=== PATIENT | female | born 1960 | race Caucasian/White ===

== ENCOUNTER 2021-07-14 12:49 | Emergency (ER) | payer BC, OTHER ==
[~2021-07-14] VITALS: Ht 172.7 cm; Wt 61.2 kg
[2021-07-14 13:10] VITALS: BP 118/79
[2021-07-14] MEDS ORDERED: DexAMETHasone SOD PHOS 4 MG/1ML SDV INJ IM ONE (15:45)
== END 2021-07-14 16:48 | disposition home or self-care (01) ==
LOC: ER 12:49
DX: U07.1 COVID-19 (principal)
CPT/HCPCS: 71045; 96372; 99283; J1100